=== PATIENT | male | born 1960 | race Caucasian/White ===

== ENCOUNTER 2016-10-05 10:55 | Emergency (ER) | payer BC ==
[2016-10-05 11:34] VITALS: BP 157/87
--- NOTE | 2016-10-05 12:27 | UC ---
Skin Complaint HPI - HPI Summary HPI Summary: Found something on back of L arm in the middle of the night 10/02/16. Pulled it off then realized it was a tick. Has been picking at area, asked friend to help dig in the spot because he is concerned that he has retained tick parts in his skin. Denies fever, redness, or tenderness. - History of Current Complaint Chief Complaint: UCWounds Time Seen by Provider: 10/05/16 12:06 Stated Complaint: TICK BITE Hx Obtained From: Patient Onset/Duration: Sudden Onset Skin Exposure Onset/Duration: Days Ago Onset Severity: Mild Current Severity: Mild Related History: Possible Reaction to: Insect - Allergy/Home Medications Allergies/Adverse Reactions: Allergies Allergy/AdvReac Type Severity Reaction Status Date / Time No Known Allergies Allergy Verified 10/05/16 11:35 Review of Systems Constitutional: Negative Skin: Other - tick bite Eyes: Negative ENT: Negative Respiratory: Negative Cardiovascular: Negative Gastrointestinal: Negative Genitourinary: Negative Motor: Negative Neurovascular: Negative Musculoskeletal: Negative Neurological: Negative Psychological: Negative All Other Systems Reviewed And Are Negative: Yes PMH/Surg Hx/FS Hx/Imm Hx Endocrine History Of: Denies: Diabetes, Thyroid Disease Cardiovascular History Of: Reports: Cardiac Disorders - MA 2013, Hypertension Respiratory History Of: Denies: COPD, Asthma GI/ History Of: Denies: Ulcer - Surgical History Surgical History: Yes Surgery Procedure, Year, and Place: 2 stents 07/2012. APPENDECTOMY - Family History Known Family History: Positive: Hypertension - Social History Occupation: Employed Full-time Alcohol Use: Weekly Substance Use Type: None Smoking Status (MU): Never Smoked Tobacco - Immunization History Most Recent Tetanus Shot: 5 yrs ago Physical Exam Triage Information Reviewed: Yes Appearance: Well-Appearing, No Pain Distress, Obese Vital Signs: Initial Vital Signs Temp 98.4 F 10/05/16 11:30 Pulse 81 10/05/16 11:30 Resp 16 10/05/16 11:30 BP 157/87 10/05/16 11:30 Pulse Ox 98 10/05/16 11:30 Vital Signs Reviewed: Yes Eye Exam: Normal Eyes: Positive: Conjunctiva Clear ENT Exam: Normal ENT: Positive: Normal ENT inspection, Hearing grossly normal, Pharynx normal, TMs normal Dental Exam: Normal Neck exam: Normal Neck: Positive: Supple, Nontender, No Lymphadenopathy Respiratory Exam: Normal Respiratory: Positive: Chest non-tender, Lungs clear, Normal breath sounds, No respiratory distress, No accessory muscle use Cardiovascular Exam: Normal Cardiovascular: Positive: RRR, No Murmur Musculoskeletal Exam: Normal Neurological Exam: Normal Neurological: Positive: Alert Psychological Exam: Normal Skin Exam: Other - round excoriated area approx 1.5cm diameter on L posterior upper arm, mostly scabbed over with darker center. Course/Dx - Diagnoses Provider Diagnoses: tick bite L arm Discharge - Discharge Plan Condition: Stable Disposition: HOME Patient Education Materials: Tick Bite (ED) Referrals: Alec Guido MD [Primary Care Provider] - Additional Instructions: TICK BITE: You have been bitten by a tick. Once the tick is removed, these "bites" usually cause no problems. Tick fever, tick paralysis, [place] Spotted fever, and Lyme disease are uncommon -- but you should mention this tick bite to your doctor if you develop unusual symptoms in the next several weeks. If you develop any of the following, please see your physician promptly: (1) Fever, chills, or generalized malaise associated with a headache. (2) A red round area at the site of the bite (or elsewhere) (3) Joint pain, joint swelling or generalized weakness. (4) Redness, swelling, or drainage at the site of the bite. Check yourself, your children and your pets for ticks whenever you've been in an area where ticks live. To remove a tick, grasp it firmly with some tweezers or a string in a slipknot as close to its head as possible and pull it steadily. Ticks do not have a typical "head" attached to their body. There are mouth parts sticking out which they use to feed. If there are mouth parts left behind in the wound there is NO increased risk of Lyme infection; however, the chances of a bacterial skin infection (cellulitis) are higher. If mouth parts remain after tick removal, the best thing to do is apply warm soaks to the area 3-4 times per day to encourage the skin to expel the foreign material. WHEN A TICK IS NOT ENGORGED AND HAS BEEN ON LESS THAN 24 HOURS - THE RISK FOR LYME IS NEGLIGIBLE. YOU CAN REMOVE THE TICK AND OBSERVE THE AREA ON YOUR OWN. FOLLOW-UP CARE: You should contact your private physician for follow-up care if you develop spreading redness near the site of the bite or on any other areas of the body. If you are unable to get a timely appointment, or if you are worsening, call us or return for re-evaluation.
== END 2016-10-05 12:30 | disposition home or self-care (01) ==
LOC: UCEAST 10:55
DX: S40.862A Insect bite (nonvenomous) of left upper arm, initial encounter (principal); W57.XXXA Bitten or stung by nonvenomous insect and other nonvenomous arthropods, initial encounter; Y93.9 Activity, unspecified; Y92.9 Unspecified place or not applicable; I25.2 Old myocardial infarction; Z95.5 Presence of coronary angioplasty implant and graft; I10 Essential (primary) hypertension
CPT/HCPCS: 99211; G0463

== ENCOUNTER 2018-11-03 09:00 | Inpatient (IN) | payer BC ==
--- NOTE | 2018-10-24 12:39 | HP ---
HISTORY AND PHYSICAL: DATE OF ADMISSION/SURGERY: 11/03/18 DATE OF OFFICE VISIT: 10/21/18 SURGEON: Keyonna Willson MD* (dictated by SHAYLEE Lawton). PROCEDURE: Left total hip arthroplasty. CHIEF COMPLAINT: Left hip pain. HISTORY OF PRESENT ILLNESS: Larry is a 58-year-old gentleman with end-stage osteoarthritis of the left hip. He has failed conservative treatment and elected to proceed with a left total hip arthroplasty. PAST MEDICAL HISTORY: Hypertension, high cholesterol, prior MT, coronary artery disease, GERD, and sleep apnea. PAST SURGICAL HISTORY: Stent placement, hernia repair, appendectomy. CURRENT MEDICATIONS: 1. Aspirin 81 mg daily. 2. Omeprazole 20 mg a day. 3. CPAP nightly. 4. Metoprolol 50 mg a day. 5. Atorvastatin calcium 40 mg a day. 6. Nitrostat as needed. ALLERGIES: No known drug allergies. FAMILY HISTORY: Coronary artery disease. SOCIAL HISTORY: He is a 58-year-old gentleman, lives alone. He does not smoke or use drugs. REVIEW OF SYSTEMS: A complete 14-point review of systems was reviewed with the patient. It was positive for GERD. He denies history of DVT, hepatitis, HIV, or anesthesia problems. PHYSICAL EXAMINATION GENERAL: He is well developed, well nourished, in no acute distress. VITAL SIGNS: He stands 69 inches tall, weighs 260 pounds. Blood pressure is 132/84, heart rate 78. HEENT: Normocephalic, atraumatic. NECK: Supple. No palpable lymph nodes. PULMONARY: The lungs are clear to auscultation bilaterally. CARDIO: Regular rate and rhythm. Strong S1, S2. ABDOMEN: Soft, nontender, nondistended. NEUROLOGICAL: He is alert and oriented x3. MUSCULOSKELETAL: Left lower extremity: The skin is intact. There are no open wounds or abrasions. He walks with an antalgic-type gait favoring his left hip. He has decreased internal and external rotation of the left hip. He has a 2+ dorsalis pedis pulse with intact sensation and he is able to dorsiflex and plantar flex. ASSESSMENT AND PLAN: Mr. Juarez is a 58-year-old gentleman with end-stage osteoarthritis of the left hip. He has failed conservative treatment and elected to proceed with a left total hip arthroplasty. The surgery is scheduled for 11/03/[address] Willson discussed the risks and benefits of the surgery at today's visit and all of his questions were answered. He will follow up with Dr. Willson 2 weeks after the surgery. SHAYLEE LAWTON [id number]/[facility] #: [id number] [place]
[~2018-11-03 09:00] MED LIST: Buffered Lidocaine 1% SYRIN* 1 ML/SYRINGE INTRADERM ONE; Lactated Ringers 1000 ML Bag* 1,000 ML IV SCH; Tranexamic Acid 1,000 MG in NS 0.9% 50 ML* (outpatient use) IV SCH
[2018-11-03] MEDS ORDERED: fentaNYL* 50 MCG/ML 2 ML VIAL (100 MCG VIAL) ONE (09:21)
[2018-11-03] MEDS ORDERED: Midazolam* 1 MG/ML 2 ML VIAL (2 MG) ONE ×2 (09:21→12:42)
[2018-11-03] MEDS ORDERED: Lidocaine 2% PF * 5 ML VIAL ONE (09:21)
[2018-11-03] MEDS ORDERED: Propofol* 10 MG/ML 20 ML BTL ONE (09:21)
[2018-11-03] MEDS ORDERED: ROPIVACAINE 5 MG/ML 30 ML BTL (0.5%) ONE (09:21)
[2018-11-03] MEDS ORDERED: Dexmedetomidine* 200 MCG/2 ML 2 ML VIAL ONE (09:22)
[2018-11-03] MEDS ORDERED: KETAMINE HCL* 50 MG/ML 10 ML VIAL ONE (09:39)
--- OUTSIDE RECORDS SUMMARY | 2018-11-03 09:50 | XMS REPORT | Continuity of Care Document ---
:1960 External Reference #:[id number] Author Name SHAYLEE Cowan Address [address] , [place] [address] Care Team Providers Name Role Phone Alec Guido MD Primary Care Physician Unavailable Payers Date Identification Numbers Payment Provider Subscriber Effective: 2012 Policy Number: [id number] BS Facets Anmol Martinez PayID: [id number] [address] [address] [place] [address] Advance Directives Description No Information Available Problems Active Problems Provider Date Acute myocardial infarction of inferior Ruth Guevara D.O. Onset: 2012 wall Patient post percutaneous transluminal Ruth Guevara D.O. Onset: 2012 coronary angioplasty Coronary arteriosclerosis Milton Warner M.D. Onset: 08/26/2012 Chronic ischemic heart disease Milton Warner M.D. Onset: 08/26/2012 Hyperlipidemia Ruht Guevara D.O. Onset: 11/10/2012 Obstructive sleep apnea syndrome Tray Deal M.D. Onset: 2013 Electrocardiogram abnormal Tray Deal M.D. Onset: 09/22/2013 Localized, primary osteoarthritis of Keyonna Willson M.D. Onset: 10/03/2018 the pelvic region and thigh Family History Date Family Member(s) Observation Comments General Heart Disease Mother Hypercholesterolemia Siblings 2 Social History Type Date Description Comments Sex Unknown Marital Status Single Lives With Alone Occupation Retired ETOH Use Currently consumes alcohol 10 drink/week Tobacco Use Start: Unknown Patient has never smoked Recreational Drug Use Denies Drug Use Smoking Status Reviewed: 10/21/18 Patient has never smoked Exercise Type/Frequency Exercises sporadically Allergies, Adverse Reactions, Alerts Description No Known Drug Allergies Medications Active Medications SIG Qnty Indications Ordering Provider Date Nitrostat one sl q5min up 25tabs Qutaybeh S. 05/17/2014 0.4mg Tablets to 3 doses as Melissa Deal Sub needed Metoprolol Succinate take 1 tablet 90tabs Qutaybeh S. 09/22/2013 ER daily Melissa Deal 50mg Tablets ER 24HR Aspir-Low 1 po qd 30tabs Ruth Guevara, 07/12/2012 81mg Tablets D.O. Atorvastatin Calcium 1 by mouth every 90tabs Qutaybeh S. 07/12/2012 day Melissa Deal 40mg Tablets Omeprazole 1 po qd prn 30caps Unknown 20mg Capsules Cpap nightly Unknown Device History Medications Nitroquick one q 5 min prn 30tabs Qutaybeh S. 09/01/2012 - 0.4mg for cp x 3 if Melissa Deal 05/17/2014 Tablets Sub needed Metoprolol Succinate 1 po qd 90tabs Qutaybeh S. 07/20/2012 - ER Melissa Deal 09/22/2013 25mg Tablets ER 24HR Plavix 1 po qd 30tabs Ruth Guevara, 07/12/2012 - 75mg Tablets D.O. 07/05/2013 Vitamin C SR 1 by mouth every Other Ordering - 1000mg day Provider 11/05/2014 Capsules ER Penicillin VK 1 tablet po q.i.d Unknown - 500mg until finished ( 12/24/2014 abscess tooth) Immunizations CPT Code Status Date Vaccine Lot # [id number] Given 04/13/2016 Influenza Virus 3Yrs & Over Vital Signs Date Vital Result Comment 10/21/2018 3:29pm Height 69.25 inches 5'9.25" Weight 245.00 lb BP Systolic 132 mmHg BP Diastolic 84 mmHg Respiratory Rate 16 /min Pain Level 4 BMI (Body Mass Index) 35.9 kg/m2 10/03/2018 8:27am Height 69.25 inches 5'9.25" Weight 260.00 lb Heart Rate 76 /min BP Systolic 132 mmHg BP Diastolic 90 mmHg Pain Level 9 BMI (Body Mass Index) 38.1 kg/m2 08/08/2018 1:09pm Height 68 inches 5'8" Weight 257.00 lb with shoes Heart Rate 76 /min BP Systolic Sitting 126 mmHg BP Diastolic Sitting 86 mmHg BP Systolic Standing 132 mmHg BP Diastolic Standing 86 mmHg BMI (Body Mass Index) 39.1 kg/m2 Ejection Fraction 55-60% 11/14/14 echo 02/07/2018 2:47pm Height 68 inches 5'8" Weight 247.00 lb with sandals BP Systolic Sitting 110 mmHg Lue lg cuff BP Diastolic Sitting 80 mmHg Lue lg cuff BP Systolic Standing 112 mmHg Lue lg cuff BP Diastolic Standing 72 mmHg Lue lg cuff BMI (Body Mass Index) 37.6 kg/m2 Ejection Fraction 50-55% date 11/14/14 ECHO 12/02/2017 1:10pm Height 68 inches 5'8" Weight 247.00 lb Heart Rate 80 /min BP Systolic Sitting 116 mmHg Rue large cuff BP Diastolic Sitting 90 mmHg Rue large cuff BP Systolic Standing 120 mmHg Rue BP Diastolic Standing 90 mmHg Rue Respiratory Rate 16 /min BMI (Body Mass Index) 37.6 kg/m2 Ejection Fraction 50-55% as of 2014 echo 07/29/2017 4:21pm Height 68 inches 5'8" Weight 257.00 lb without shoes Heart Rate 78 /min BP Systolic Sitting 132 mmHg Rue lg cuff BP Diastolic Sitting 90 mmHg Rue lg cuff BP Systolic Standing 128 mmHg Rue lg cuff BP Diastolic Standing 94 mmHg Rue lg cuff Respiratory Rate 17 /min BMI (Body Mass Index) 39.1 kg/m2 12/24/2016 10:31am Height 68 inches 5'8" Weight 256.00 lb Heart Rate 82 /min BP Systolic Sitting 124 mmHg BP Diastolic Sitting 82 mmHg Respiratory Rate 20 /min O2 % BldC Oximetry 97 % room air BMI (Body Mass Index) 38.9 kg/m2 11/05/2016 3:19pm Height 68 inches 5'8" Weight 250.00 lb with boots Heart Rate 84 /min BP Systolic Sitting 122 mmHg LA lrg cuff BP Diastolic Sitting 78 mmHg LA lrg cuff BMI (Body Mass Index) 38.0 kg/m2 Ejection Fraction 50% - 55% echo 11/14/14 03/25/2016 2:25pm Weight 247.75 lb with shoes Heart Rate 62 /min BP Systolic Sitting 130 mmHg La lg cuff BP Diastolic Sitting 90 mmHg La lg cuff Respiratory Rate 16 /min Ejection Fraction 55% date 11/14/14 stress 08/05/2015 3:48pm Height 68 inches 5'8" Weight 245.00 lb w/shoes Heart Rate 72 /min BP Systolic Sitting 162 mmHg LA reg cuff BP Diastolic Sitting 98 mmHg LA reg cuff BMI (Body Mass Index) 37.2 kg/m2 Ejection Fraction 50-55 echo 11/14/14 12/25/2014 1:02pm Height 68 inches 5'8" Weight 235.00 lb with shoes Heart Rate 64 /min BP Systolic Sitting 120 mmHg Ra lg cuff BP Diastolic Sitting 74 mmHg Ra lg cuff Respiratory Rate 16 /min BMI (Body Mass Index) 35.7 kg/m2 Ejection Fraction 50-55% date 11/14/14 echo 11/06/2014 2:07pm Height 68 inches 5'8" Weight 229.00 lb without shoes Heart Rate 76 /min BP Systolic Sitting 128 mmHg LA lg cuff BP Diastolic Sitting 86 mmHg LA lg cuff Respiratory Rate 12 /min BMI (Body Mass Index) 34.8 kg/m2 Ejection Fraction 50-55% date 09/28/13 05/17/2014 10:49am Height 68 inches 5'8" Weight 222.00 lb Heart Rate 72 /min BP Systolic Sitting 130 mmHg LA, large BP Diastolic Sitting 82 mmHg LA, large BMI (Body Mass Index) 33.8 kg/m2 09/22/2013 9:11am Height 68 inches 5'8" Weight 220.00 lb Heart Rate 72 /min BP Systolic Sitting 122 mmHg BP Diastolic Sitting 70 mmHg BMI (Body Mass Index) 33.4 kg/m2 05/17/2013 2:41pm Height 68 inches 5'8" Weight 216.00 lb Heart Rate 84 /min Regular BP Systolic Sitting 128 mmHg BP Diastolic Sitting 72 mmHg BMI (Body Mass Index) 32.8 kg/m2 11/10/2012 1:35pm Height 68 inches 5'8" Weight 220.25 lb Heart Rate 84 /min Regular BP Systolic Sitting 126 mmHg BP Diastolic Sitting 72 mmHg BMI (Body Mass Index) 33.5 kg/m2 09/01/2012 2:18pm Height 68 inches 5'8" Weight 224.25 lb Heart Rate 72 /min Regular BP Systolic Sitting 122 mmHg BP Diastolic Sitting 80 mmHg BMI (Body Mass Index) 34.1 kg/m2 08/02/2012 3:08pm Height 68 inches 5'8" Weight 232.00 lb Heart Rate 84 /min Regular BP Systolic Sitting 128 mmHg BP Diastolic Sitting 64 mmHg BMI (Body Mass Index) 35.3 kg/m2 07/20/2012 9:57am Height 68 inches 5'8" Weight 232.75 lb Heart Rate 76 /min BP Systolic Sitting 112 mmHg BP Diastolic Sitting 80 mmHg BMI (Body Mass Index) 35.4 kg/m2 Results Test Date Facility Test Result H/L Range Note Inr/Protime 10/24/2018 [facility] Inr 0.94 N 0.82-1.[address] [place] [address] [phone] Laboratory test 10/24/2018 [facility] Partial 27.1 seconds N 26.0-36.[address] [address] PTT [phone] Comp Metabolic 10/24/2018 [facility] Sodium 139 mmol/L N 135- [address] [place] [address] [phone] Potassium 4.4 mmol/L N 3.5-5.0 Chloride 106 mmol/L N 101-111 Co2 Carbon Dioxide 27 mmol/L N 22-32 Anion Gap 6 mmol/L N 2-11 Glucose 110 mg/dL High 70-100 Blood Urea Nitrogen 14 mg/dL N 6-24 Creatinine 0.95 mg/dL N 0.67-1.17 BUN/Creatinine Ratio 14.7 N 8-20 Calcium 9.1 mg/dL N 8.6-10.3 Total Protein 6.6 g/dL N 6.4-8.9 Albumin 4.2 g/dL N 3.2-5.2 Globulin 2.4 g/dL N 2-4 Albumin/Globulin Ratio 1.8 N 1-3 Total Bilirubin 0.60 mg/dL N 0.2-1.0 Alkaline Phosphatase 91 U/L N 34-104 Alt 47 U/L N 7-52 Ast 31 U/L N 13-39 Egfr Non- 82.0 >60 Egfr 99.2 >60 2 CBC Auto Diff 10/24/2018 [facility] White Blood 6.5 10^3/uL N 3.5-10.[address] [place] [address] [phone] Red Blood Count 4.56 10^6/uL N 4.18-5.48 Hemoglobin 15.4 g/dL N 14.0-18.0 Hematocrit 45 % N 36-46 Mean Corpuscular Volume 98 fL High 80-94 Mean Corpuscular Hemoglobin 34 pg High 27-31 Mean Corpuscular HGB Conc 35 g/dL N 31-36 Red Cell Distribution Width 14 % N 10.5-15 Platelet Count 160 10^3/uL N 150-450 Mean Platelet Volume 7.5 fL N 7.4-10.4 Abs Neutrophils 4.0 10^3/uL N 1.5-7.7 Abs Lymphocytes 1.7 10^3/uL N 1.0-4.8 Abs Monocytes 0.6 10^3/uL N 0-0.8 Abs Eosinophils 0.1 10^3/uL N 0-0.6 Abs Basophils 0 10^3/uL N 0-0.2 Abs Nucleated RBC 0 10^3/uL Granulocyte % 61.7 % Lymphocyte % 26.1 % Monocyte % 9.3 % Eosinophil % 2.3 % Basophil % 0.6 % Nucleated Red Blood Cells % 0.1 Type & Screen 10/24/2018 [facility] Patient Blood Type A Positive [address] [place] [address] [phone] Antibody Screen NEGATIVE Urinalysis Profile 10/24/2018 [facility] Urine Color Yellow [address] [place] [address] [phone] Urine Appearance Clear Urine Specific Colbert 1.019 N 1.010-1.030 Urine pH 5.0 N 5-9 Urine Urobilinogen Negative Negative Urine Ketones Negative Negative Urine Protein Negative Negative Urine Leukocytes Negative Negative Urine Blood Negative Negative Urine Nitrite Negative Negative Urine Bilirubin Negative Negative Urine Glucose Negative Negative Urine Culture And 10/24/2018 [facility] Urine Culture SEE RESULT [address] [place] [address] [phone] 1 Standard intensity warfarin therapeutic range: 2.0-3.0 High intensity warfarin therapeutic range: 2.5-3.5 2 Because ethnic data is not always readily available, this report includes an eGFR for both -Americans and non- Americans. The National Kidney Disease Education Program (NKDEP) does not endorse the use of the MDRD equation for patients that are not between the ages of 18 and 70, are , have extremes of body size, muscle mass, or nutritional status, or are non- or non-. According to the National Kidney Foundation, irrespective of diagnosis, the stage of the disease is based on the level of kidney function: Stage Description GFR(mL/min/1.73 m(2)) 1 Kidney damage with normal or decreased GFR 90 2 Kidney damage with mild decrease in GFR 60-89 3 Moderate decrease in GFR 30-59 4 Severe decrease in GFR 15-29 5 Kidney failure <15 (or dialysis) 3 SEE RESULT BELOW Name: ANMOL MARTINEZ : [address]: Keyonna Willson MD Acct: [id number] Unit: [id number] AGE: 58 Location: [facility] Re10/24/18 SEX: M Status: REG REF SPEC: [id number] NIMO: 10/24/[address] [facility] [address]: Keyonna Willson MD REQ: [id number] RECD: 10/24/18-5 STATUS: COMP [facility] DR: Alec Guido MD _ SOURCE: URINE SPDESC: ORDERED: Urine Culture QUERIES: Urine Source: Random Procedure Result Reported Site Urine Culture Final 10/25/18- 1256 ML No Growth (<1,000 CFU/mL) * ML - Main Lab . END OF REPORT DEPARTMENT OF PATHOLOGY, [address] [place] [address] David Marcus M.D. Director [facility] # [id number] Procedures Date Code Description Status 08/08/2018 30197 EKG Tracing & Interpretation Completed 02/07/2018 80602 EKG Tracing & Interpretation Completed 12/02/2017 86564 EKG Tracing & Interpretation Completed 07/29/2017 44687 EKG Tracing & Interpretation Completed 11/05/2016 68118 EKG Tracing & Interpretation Completed 03/25/2016 02971 EKG Tracing & Interpretation Completed 08/05/2015 47572 EKG Tracing & Interpretation Completed 11/21/2014 76737 ECHO Stress Test Incl Perf Contiuous ekg Monitoring W/Phys Completed Superv 11/14/2014 22522 ECHO Transthoracic, Real-Time 2D With Doppler And Color Completed Flow 11/06/2014 20069 EKG Tracing & Interpretation Completed 05/17/2014 62861 EKG Tracing & Interpretation Completed 11/09/2013 93845 ECHO Stress Test Incl Perf Contiuous ekg Monitoring W/Phys Completed Superv 11/09/2013 73152 ECHO Stress Test Incl Perf Contiuous ekg Monitoring W/Phys Completed Superv 09/28/2013 68228 ECHO Transthoracic, Real-Time 2D With Doppler And Color Completed Flow 09/22/2013 35796 EKG Tracing & Interpretation Completed 09/12/2012 69334 Polysomnography Sleep Staging 4+ Parameters W/Cpap Completed 08/26/2012 84237 ECHO Stress Test Incl Perf Contiuous ekg Monitoring W/Phys Completed Superv 08/26/2012 13579 ECHO Stress Test Incl Perf Contiuous ekg Monitoring W/Phys Completed Superv 07/11/2012 74398 Color Flow Doppler/Interp & Reprt Completed 07/11/2012 79026 Pulse Wave/Continuous-Interp.RPT Completed 07/11/2012 05151 ECHO Transthorasic Realtime 2D W Doppler & Color Flow Hosp Completed 07/11/2012 16701 ECHO Transthoracic, Real-Time 2D With Doppler And Color Completed Flow 07/11/2012 89791 EKG, Interpretation Only Completed 07/10/2012 39520 Cath PLMT&NJX L Ventriculog Img S&I Completed 07/10/2012 35666 EKG, Interpretation Only Completed 07/10/2012 63913 Revascularization Acute Total/Subtotal Occlusion Completed 07/10/2012 18576 IV Rx Trancath Therapy(Nitro/Marquis) Completed Encounters Type Date Location Provider Dx Diagnosis Office Visit 10/03/2018 [facility] Keyonna Willson, M25.552 Pain in left hip 8:30a [facility] M16.12 Unilateral primary osteoarthritis, left hip Office Visit 08/08/2018 1:40p [place] [facility] Tray Goldstein I25.10 [facility] Melissa Deal disease of [place] coronary artery w/o ang pctrs E78.49 Other hyperlipidemia G47.33 Obstructive sleep apnea (adult) (pediatric) Z98.61 Coronary angioplasty status E66.9 Obesity, unspecified R94.31 Abnormal electrocardiogram [ECG] [EKG] Office Visit 02/07/2018 3:20p [facility] Deal disease of [place] coronary artery w/o ang pctrs E78.4 Other hyperlipidemia E66.9 Obesity, unspecified G47.33 Obstructive sleep apnea (adult) (pediatric) Office Visit 12/02/2017 1:40p [facility] Tray S. I25.10 [facility] Melissa Deal disease of [place] coronary artery w/o ang pctrs Z98.61 Coronary angioplasty status E78.4 Other hyperlipidemia E66.9 Obesity, unspecified G47.33 Obstructive sleep apnea (adult) (pediatric) Z01.810 Encounter for preprocedural cardiovascular examination K42.9 Umbilical hernia without obstruction or gangrene R94.31 Abnormal electrocardiogram [ECG] [EKG] Office Visit 07/29/2017 4:40p [facility] S. [facility]25.10 [facility] Melissa Deal disease of [place] coronary artery w/o ang pctrs Z98.61 Coronary angioplasty status E78.4 Other hyperlipidemia E66.9 Obesity, unspecified G47.33 Obstructive sleep apnea (adult) (pediatric) Office Visit 12/24/2016 10:15a [facility] G47.33 Obstructive sleep [facility] apnea (adult) [facility] (pediatric) J30.9 Allergic rhinitis, unspecified E66.09 Other obesity due to excess calories Z68.38 Body mass index (BMI) 38.0-38.9, adult Office Visit 11/05/2016 3:40p [facility] Tray S. I25.10 [facility] Melissa Deal disease of [place] coronary artery w/o ang pctrs Z98.61 Coronary angioplasty status E78.4 Other hyperlipidemia G47.33 Obstructive sleep apnea (adult) (pediatric) R94.31 Abnormal electrocardiogram [ECG] [EKG] E66.9 Obesity, unspecified Z68.38 Body mass index (BMI) 38.0-38.9, adult Office Visit 03/25/2016 3:00p [facility] Tray S. I25.10 F[facility] kwadwo Deal M.D. disease of [place] coronary artery w/o [facility] pctrs Z98.61 Coronary angioplasty status E78.4 Other hyperlipidemia G47.33 Obstructive sleep apnea (adult) (pediatric) R94.31 Abnormal electrocardiogram [ECG] [EKG] Office Visit 08/05/2015 4:00p [place] Amber Feliz S. I25.10 [facility] Melissa Deal disease of [place] coronary artery w/o [facility] pctrs Z98.61 Coronary angioplasty status E78.4 Other hyperlipidemia G47.33 Obstructive sleep apnea (adult) (pediatric) R94.31 Abnormal electrocardiogram [ECG] [EKG] E66.9 Obesity, unspecified Office Visit 12/25/2014 Ian Feliz S. 414.01 Coronary 1:40p Cardiology Speedy Deal M.D. Atherosclerosis Su[employer] [place] V45.82 Percutaneous Transluminal Coronary Angioplas Postsurg Status 272.4 Hyperlipidemia Other Unspec 327.23 Obstructive Sleep Apnea Adult & Pediatric Office Visit 11/06/2014 Phan Yoderybjuan S. 414.01 Coronary 2:20p Amber Deal M.D. Atherosclerosis [place] V45.82 Percutaneous Transluminal Coronary Angioplas Postsurg Status 272.4 Hyperlipidemia Other Unspec 327.23 Obstructive Sleep Apnea Adult & Pediatric 786.50 Pain Chest Unspec 786.05 Shortness Of Breath Office Visit 05/17/2014 Phan Yoderybeh S. 414.01 Coronary 11:00a Amber Deal M.D. Atherosclerosis [place] V45.82 Percutaneous Transluminal Coronary Angioplas Postsurg Status 272.4 Hyperlipidemia Other Unspec 327.23 Obstructive Sleep Apnea Adult & Pediatric Office Visit 11/09/2013 Phan Yoderybjuan S. 414.01 Coronary 9:30a Amber Deal M.D. Atherosclerosis [place] 794.31 Electrocardiogram (ECG) (EKG) Abnormal V45.82 Percutaneous Transluminal Coronary Angioplas Postsurg Status 272.4 Hyperlipidemia Other Unspec Office Visit 09/22/2013 Phan Qumaryybeh S. 414.01 Coronary 9:20a Amber Deal M.D. Atherosclerosis [place] V45.82 Percutaneous Transluminal Coronary Angioplas Postsurg Status 272.4 Hyperlipidemia Other Unspec 327.23 Obstructive Sleep Apnea Adult & Pediatric 278.00 Obesity Unspec 794.31 Electrocardiogram (ECG) (EKG) Abnormal Office Visit 05/17/2013 [place] Ruth 414.01 Coronary 2:20p Cardiology Lonnie Guevara Atherosclerosis [place] V45.82 Percutaneous Transluminal Coronary Angioplas Postsurg Status 272.4 Hyperlipidemia Other Unspec 327.23 Obstructive Sleep Apnea Adult & Pediatric Office Visit 11/10/2012 Phan Hugoie 414.01 Coronary 1:40p Cardiology AT Lonnie Guevara Atherosclerosis [facility] [place] V45.82 Percutaneous Transluminal Coronary Angioplas Postsurg Status 272.4 Hyperlipidemia Other Unspec 327.23 Obstructive Sleep Apnea Adult & Pediatric Office Visit 09/16/2012 Conrado Montilla 327.23 Obstructive Sleep 1:51p Disorder [place] Apnea Adult & Pediatric Office Visit 09/06/2012 Conrado Montilla 786.09 Dyspnea & 9:35a Disorder [place] Respiratory Abnormalities Other Office Visit 09/01/2012 Phan Miranda 414.01 Coronary 2:00p Cardiology AT Lonnie Guevara Atherosclerosis [facility] [place] 410.41 Myocardial Infarc Acute Other Infer Wall Initial Episode CR V45.82 Percutaneous Transluminal Coronary Angioplas Postsurg Status 272.4 Hyperlipidemia Other Unspec Office Visit 08/02/2012 Phan Miranda V45.82 Percutaneous 2:40p Cardiology AT Lonnie Guevara Transluminal [facility] Coronary Angioplas Postsurg Status 410.41 Myocardial Infarc Acute Other Infer Wall Initial Episode CR 414.01 Coronary Atherosclerosis [place] 272.4 Hyperlipidemia Other Unspec Office Visit 07/20/2012 9:40a [facility] Ruth 410.41 Myocardial Guevara, D.O. Infarc Acute Other Infer Wall Initial Episode CR 414.01 Coronary Atherosclerosis [place] 272.4 Hyperlipidemia Other Unspec Office Visit 07/12/2012 1:59p [facility] Ruth 786.50 Pain Chest Guevara, D.O. Unspec 410.40 Myocardial Infarc Acute Other Infer Wall Episode CR Unspec 414.01 Coronary Atherosclerosis [place] Office Visit 07/11/2012 1:58p [facility] Ruth 786.50 Pain Chest Guevara, D.O. Unspec 410.40 Myocardial Infarc Acute Other Infer Wall Episode CR Unspec 414.01 Coronary Atherosclerosis [place] Office Visit 07/10/2012 1:39p [facility] Ruth 786.50 Pain Chest Guevara, D.O. Unspec 410.40 Myocardial Infarc Acute Other Infer Wall Episode CR Unspec 414.01 Coronary Atherosclerosis [place] Plan of Treatment Future Appointment(s):11/16/2018 10:15 am - Keyonna Willson M.D. at [facility].11/03/2018 9:30 am - Keyonna Willson M.D. at [facility].10/21/2018 - Keyonna Willson M.D.M25.552 Pain in left hipFollow up:Follow up: 2 weeks after ucybhzpZ54.12 Unilateral primary osteoarthritis, left hip
--- OUTSIDE RECORDS SUMMARY | 2018-11-03 09:50 | XMS REPORT | Continuity of Care Document ---
:1960 External Reference #:[id number] Author Name Shae Larson Care Team Providers Name Role Phone Alec Guido MD Primary Care Physician Unavailable Payers Date Identification Numbers Payment Provider Subscriber Effective: 2012 Policy Number: [id number] [employer] Wilmer Juarez PayID: [id number] [address] [address] [place] [address] Advance Directives Description No Information Available Problems Active Problems Provider Date Acute myocardial infarction of inferior Ruth Guevara D.O. Onset: 2012 wall Patient post percutaneous transluminal Ruth Guevara D.O. Onset: 2012 coronary angioplasty Coronary arteriosclerosis Milton Warner M.D. Onset: 08/26/2012 Chronic ischemic heart disease Milton Warner M.D. Onset: 08/26/2012 Hyperlipidemia Ruth Guevara D.O. Onset: 11/10/2012 Obstructive sleep apnea [...] CPT Code Status Date Vaccine Lot # [id number] Given 04/13/2016 Influenza Virus 3Yrs & Over [...] BMI (Body Mass Index) 35.4 kg/m2 Results Description No Information Available Procedures Date Code Description Status 08/08/2018 45327 EKG Tracing & Interpretation Completed 02/07/2018 22442 EKG Tracing & Interpretation Completed 12/02/2017 40174 EKG Tracing & Interpretation Completed 07/29/2017 95380 EKG Tracing & Interpretation Completed 11/05/2016 64474 EKG Tracing & Interpretation Completed 03/25/2016 88055 EKG Tracing & Interpretation Completed 08/05/2015 49626 EKG Tracing & Interpretation Completed 11/21/2014 21647 ECHO Stress Test Incl Perf Contiuous ekg Monitoring W/Phys Completed Superv 11/14/2014 47684 ECHO Transthoracic, Real-Time 2D With Doppler And Color Completed Flow 11/06/2014 81492 EKG Tracing & Interpretation Completed 05/17/2014 88419 EKG Tracing & Interpretation Completed 11/09/2013 62203 ECHO Stress Test Incl Perf Contiuous ekg Monitoring W/Phys Completed Superv 11/09/2013 91233 ECHO Stress Test Incl Perf Contiuous ekg Monitoring W/Phys Completed Superv 09/28/2013 45030 ECHO Transthoracic, Real-Time 2D With Doppler And Color Completed Flow 09/22/2013 02138 EKG Tracing & Interpretation Completed 09/12/2012 74941 Polysomnography Sleep Staging 4+ Parameters W/Cpap Completed 08/26/2012 29642 ECHO Stress Test Incl Perf Contiuous ekg Monitoring W/Phys Completed Superv 08/26/2012 24357 ECHO Stress Test Incl Perf Contiuous ekg Monitoring W/Phys Completed Superv 07/11/2012 57485 Color Flow Doppler/Interp & Reprt Completed 07/11/2012 21539 Pulse Wave/Continuous-Interp.RPT Completed 07/11/2012 96296 ECHO Transthorasic Realtime 2D W Doppler & Color Flow Hosp Completed 07/11/2012 65929 ECHO Transthoracic, Real-Time 2D With Doppler And Color Completed Flow 07/11/2012 24371 EKG, Interpretation Only Completed 07/10/2012 18779 Cath PLMT&NJX L Ventriculog Img S&I Completed 07/10/2012 01726 EKG, Interpretation Only Completed 07/10/2012 83268 Revascularization Acute Total/Subtotal Occlusion Completed 07/10/2012 26999 IV Rx Trancath Therapy(Nitro/Marquis) Completed Encounters Type Date Location Provider Dx Diagnosis Office Visit 10/03/2018 [facility] Keyonna Willson, M25.552 Pain in left hip 8:30a [facility] M16.12 Unilateral primary osteoarthritis, left hip Office Visit 08/08/2018 1:40p [facility] Tray S. I25.10 Jianpadahiana Deal M.D. disease of iroquois coronary artery w/o ang pctrs E78.49 Other hyperlipidemia G47.33 Obstructive sleep apnea (adult) (pediatric) Z98.61 Coronary angioplasty status E66.9 Obesity, unspecified R94.31 Abnormal electrocardiogram [ECG] [EKG] Office Visit 02/07/2018 3:20p [facility] Qumaryybjuan S. I25.10 [facility] heart Heather Deal M.D. disease of iroquois coronary artery w/o ang pctrs E78.4 Other hyperlipidemia E66.9 Obesity, unspecified G47.33 Obstructive sleep apnea (adult) (pediatric) Office Visit 12/02/2017 1:40p [facility] Tray S. I25.10 [facility] Terry Deal M.D. disease of iroquois coronary artery w/o ang pctrs Z98.61 Coronary angioplasty status E78.4 Other hyperlipidemia E66.9 Obesity, unspecified G47.33 Obstructive sleep apnea (adult) (pediatric) Z01.810 Encounter for preprocedural cardiovascular examination K42.9 Umbilical hernia without obstruction or gangrene R94.31 Abnormal electrocardiogram [ECG] [EKG] Office Visit 07/29/2017 4:40p [facility] RisparmioSuperchloe S. I25.10 [facility] heart Of Terry Deal M.D. disease of iroquois coronary artery w/o ang pctrs Z98.61 Coronary angioplasty status E78.4 Other hyperlipidemia E66.9 Obesity, unspecified G47.33 Obstructive sleep apnea (adult) (pediatric) Office Visit 12/24/2016 10:15a [facility] G47.33 Obstructive sleep [facility] Wojciech apnea (adult) Jewel Stripper (pediatric) J30.9 Allergic rhinitis, unspecified E66.09 Other obesity due to excess calories Z68.38 Body mass index (BMI) 38.0-38.9, adult Office Visit 11/05/2016 3:40p [facility] Qutaybeh S. I25.10 Rafael Deal M.D. disease of iroquois coronary artery w/o ang pctrs Z98.61 Coronary angioplasty status E78.4 Other hyperlipidemia G47.33 Obstructive sleep apnea (adult) (pediatric) R94.31 Abnormal electrocardiogram [ECG] [EKG] E66.9 Obesity, unspecified Z68.38 Body mass index (BMI) 38.0-38.9, adult Office Visit 03/25/2016 3:00p [facility] Qutaybeh S. I25.10 Rafael Deal M.D. disease of iroquois coronary artery w/o ang pctrs Z98.61 Coronary angioplasty status E78.4 Other hyperlipidemia G47.33 Obstructive sleep apnea (adult) (pediatric) R94.31 Abnormal electrocardiogram [ECG] [EKG] Office Visit 08/05/2015 4:00p [facility] Tray S. I25.10 Rafael Deal M.D. disease of iroquois coronary artery w/o ang pctrs Z98.61 Coronary angioplasty status E78.4 Other hyperlipidemia G47.33 Obstructive sleep apnea (adult) (pediatric) R94.31 Abnormal electrocardiogram [ECG] [EKG] E66.9 Obesity, unspecified Office Visit 12/25/2014 Ian Feliz S. 414.01 Coronary 1:40p Mago M.D. Atherosclerosis Jewel [facility] [place] V45.82 Percutaneous Transluminal Coronary Angioplas Postsurg Status 272.4 Hyperlipidemia Other Unspec 327.23 Obstructive Sleep Apnea Adult & Pediatric Office Visit 11/06/2014 Phan Feliz S. 414.01 Coronary 2:20p Cardiology Maghaydah, M.D. Atherosclerosis [place] V45.82 Percutaneous Transluminal Coronary Angioplas Postsurg Status 272.4 Hyperlipidemia Other Unspec 327.23 Obstructive Sleep Apnea Adult & Pediatric 786.50 Pain Chest Unspec 786.05 Shortness Of Breath Office Visit 05/17/2014 Phan Jainchloe S. 414.01 Coronary 11:00a Cardiology Melissa Deal Atherosclerosis [place] V45.82 Percutaneous Transluminal Coronary Angioplas Postsurg Status 272.4 Hyperlipidemia Other Unspec 327.23 Obstructive Sleep Apnea Adult & Pediatric Office Visit 11/09/2013 Phan Jainchloe S. 414.01 Coronary 9:30a Cardiology Melissa Deal Atherosclerosis [place] 794.31 Electrocardiogram (ECG) (EKG) Abnormal V45.82 Percutaneous Transluminal Coronary Angioplas Postsurg Status 272.4 Hyperlipidemia Other Unspec Office Visit 09/22/2013 Diana Tray S. 414.01 Coronary 9:20a Cardiology Melissa Deal Atherosclerosis [place] V45.82 Percutaneous Transluminal Coronary Angioplas Postsurg Status 272.4 Hyperlipidemia Other Unspec 327.23 Obstructive Sleep Apnea Adult & Pediatric 278.00 Obesity Unspec 794.31 Electrocardiogram (ECG) (EKG) Abnormal Office Visit 05/17/2013 Phan Miranda 414.01 Coronary 2:20p Cardiology Lonnie Guevara Atherosclerosis [place] V45.82 Percutaneous Transluminal Coronary Angioplas Postsurg Status 272.4 Hyperlipidemia Other Unspec 327.23 Obstructive Sleep Apnea Adult & Pediatric Office Visit 11/10/2012 Phan Miranda 414.01 Coronary 1:40p Cardiology AT Ronak Guevara. Atherosclerosis [facility] [place] V45.82 Percutaneous Transluminal Coronary Angioplas Postsurg Status 272.4 Hyperlipidemia Other Unspec 327.23 Obstructive Sleep Apnea Adult & Pediatric Office Visit 09/16/2012 Conrado Montilla 327.23 Obstructive Sleep 1:51p Disorder Bijan Camp M.D. Apnea Adult & Pediatric Office Visit 09/06/2012 Conrado Montilla 786.09 Dyspnea & 9:35a Disorder Bijan Camp M.D. Respiratory Abnormalities Other Office Visit 09/01/2012 Phan Miranda 414.01 Coronary 2:00p Cardiology AT Alicia GuevaraO. Atherosclerosis [facility] [place] 410.41 Myocardial Infarc Acute Other Infer Wall Initial Episode CR V45.82 Percutaneous Transluminal Coronary Angioplas Postsurg Status 272.4 Hyperlipidemia Other Unspec Office Visit 08/02/2012 Phan Miranda V45.82 Percutaneous 2:40p Cardiology AT Ismael D.OAbena Transluminal [facility] Coronary Angioplas Postsurg Status 410.41 Myocardial Infarc Acute Other Infer Wall Initial Episode CR 414.01 Coronary Atherosclerosis [place] 272.4 Hyperlipidemia Other Unspec Office Visit 07/20/2012 9:40a [facility] Ruth 410.41 Myocardial Guevraa, D.O. Infarc Acute Other Infer Wall Initial Episode CR 414.01 Coronary Atherosclerosis [place] 272.4 Hyperlipidemia Other Unspec Office Visit 07/12/2012 1:59p [facility] Ruth 786.50 Pain Chest Guevara, D.O. Unspec 410.40 Myocardial Infarc Acute Other Infer Wall Episode CR Unspec 414.01 Coronary Atherosclerosis [place] Office Visit 07/11/2012 1:58p [facility] Ruth 786.50 Pain Chest Guevara, D.O. Unspec 410.40 Myocardial Infarc Acute Other Infer Wall Episode CR Unspec 414.01 Coronary Atherosclerosis [place] Office Visit 07/10/2012 1:39p [facility] Ruth 786.50 Pain Chest Guevara, D.O. Unspec 410.40 Myocardial Infarc Acute Other Infer Wall Episode CR Unspec 414.01 Coronary Atherosclerosis [place] Plan of Treatment Future Appointment(s):11/16/2018 10:15 am - Keyonna Willson M.D[facility] at [facility]11/03/2018 9:30 am - Keyonna Willson M.D. at [facility]10/21/2018 - Keyonna Willson M.D.M25.552 Pain in left hipFollow up:Follow up: 2 weeks after [id number] Unilateral primary osteoarthritis, left hip
[2018-11-03] MEDS ORDERED: ceFAZolin 2 GM PREMIX in ORs 2 GM/50 ML BAG IVPB ONE (10:30)
[2018-11-03] MEDS ORDERED: Succinylcholine* 20 MG/ML 10 ML VIAL ONE (12:50)
[2018-11-03] MEDS ORDERED: Dexamethasone IV* 4 MG/ML 1 ML (4 MG) ONE (12:55)
[2018-11-03] MEDS ORDERED: Rocuronium* 10 MG/ML VIAL ONE ×2 (12:57→13:37)
[2018-11-03] MEDS ORDERED: EPHEDrine (Pressors)* 50 MG/ML VIAL ONE (13:28)
[2018-11-03] MEDS ORDERED: hydrALAZINE IV* 20 MG/ML VIAL ONE (13:40)
[2018-11-03] MEDS ORDERED: DiMENhydriNATE IV* 50 MG/ML VIAL IV PUSH PRN (13:44)
[2018-11-03] MEDS ORDERED: Naloxone* 0.4 MG/ML 1 ML VIAL IV PRN (13:44)
[2018-11-03] MEDS ORDERED: oxyCODONE TAB* 5 MG TAB PO PRN (13:44)
[2018-11-03] MEDS ORDERED: HYDROmorphone INJ1* 1 MG/ML SYRINGE ONE ×3 (13:56→16:25)
[2018-11-03] MEDS ORDERED: Ketorolac INJ* 30 MG/ML 1 ML VIAL ONE (15:14)
[2018-11-03] MEDS ORDERED: Ondansetron INJ* 2 MG/ML VIAL ONE (15:14)
[2018-11-03] MEDS ORDERED: Acetaminophen IV 1GM/100ML * 100 ML ONE (15:14)
[2018-11-03] MEDS ORDERED: Metoclopramide IV* 5 MG/ML 2 ML VIAL ONE (15:14)
[2018-11-03] MEDS ORDERED: Neostigmine Methylsulfate* 1 MG/ML 10 ML VIAL (1 mg/ml) ONE (15:17)
[2018-11-03] MEDS ORDERED: Glycopyrrolate IV* 0.2 MG/ML 1 ML VIAL ONE (15:17)
[2018-11-03] MEDS ORDERED: diPHENhydraMINE PO* 25 MG PO PRN (15:47)
[2018-11-03] MEDS ORDERED: Cyclobenzaprine TAB* 10 MG PO PRN (15:47)
[2018-11-03] MEDS ORDERED: Ondansetron INJ* 2 MG/ML VIAL IV PRN (15:47)
[2018-11-03] MEDS ORDERED: traMADol TAB* 50 MG PO PRN (15:47)
[2018-11-03] MEDS ORDERED: Magnesium Hydroxide LIQ* 30 ML UDC PO PRN (15:47)
[2018-11-03] MEDS ORDERED: Morphine 4 MG/ML VIAL (1 ml) 4 MG/ML VIAL IV PRN (15:47)
[2018-11-03] MEDS ORDERED: diPHENhydraMINE IV* 50 MG/ML 1 ml VIAL (BENADRYL) IV PRN (15:47)
[2018-11-03] MEDS ORDERED: Bisacodyl SUPP* 10 MG SUPP PR PRN (15:47)
[2018-11-03] MEDS ORDERED: Polyethylene Glycol 3350* 17 GM PACKET PO PRN (15:47)
[2018-11-03] MEDS ORDERED: Nitroglycerin TAB 0.4 MG* 0.4 MG TAB SL PRN (15:54)
[2018-11-03] MEDS ORDERED: oxyCODONE/Acetamin 5/325 MG* TAB PO PRN (15:58)
[2018-11-03] MEDS: HYDROmorphone INJ1* 1 MG/ML SYRINGE IV PRN ×4 (15:59→17:11)
[2018-11-03] MEDS ORDERED: Gabapentin CAP(*) 300 MG ONE (16:26)
[2018-11-03] MEDS ORDERED: oxyCODONE/Acetamin 5/325 MG* TAB ONE (16:41)
[2018-11-03] MEDS: oxyCODONE/Acetamin 5/325 MG* TAB PO PRN (16:42)
[2018-11-03] MEDS ORDERED: Cyclobenzaprine TAB* 10 MG PO ONE (17:00)
--- NOTE | 2018-11-03 17:12 | OP ---
Operative Report - Blank - Operative Report Date of Operation: 11/03/18 Note: ANMOL MARTINEZ 1960 Date Of Surgery: 11/03/18 Keyonna Willson MD Corrugator Helper: Kerline JUNE did help throughout the procedure with preparation of the hip, wound retraction, manipulation of the hip, and wound closure. Anesthesiologist: Dr. Cannon Anesthesia Type: General Preoperative Diagnosis: Left severe degenerative osteoarthritis of the hip Postoperative Diagnosis: As above Procedure Performed: Left Total Hip Arthroplasty Complications: None Specimen: Femoral head and acetabular reamings sent to pathology. Hardware used: This is uncemented Cassie total hip arthroplasty hardware for the femur a size 5 accolade II with 132 neck femoral component, for the acetabulum a size 52E trident II tritanium cluster hole shell, for the insert a size 36E poly trident x3 insert, and for the femoral head a size 36 + 0 ceramic biolox V40 femoral head. Brief history/Indication: ANMOL MARTINEZ was known in clinic and had a history of severe left hip pain. He failed conservative treatment with anti- inflammatories, pain pills, intra-articular injections and physical therapy. He elected to undergo left total hip arthroplasty due to continued pain and decreased quality of life. Radiographs showed severe end stage osteoarthritis of the hip with bone on bone contact. Informed consent was obtained from the patient. He understood the risks of surgery included but were not limited to: bleeding, infection, damage to nearby structures, intraoperative fracture, nerve palsy, failure of the hardware, early loosening, stiffness or loss of motion, dislocation, leg length discrepancy, anesthesia complications, stroke, heart attack, blood clot and . He wished to proceed. Intra-Operative findings: Intraoperatively the patient was noted to have severe loss of cartilage of the acetabulum and femoral head. Description of the Procedure: ANMOL MARTINEZ was identified in the preanesthesia unit. His left hip was marked as the correct operative side. Informed consent was signed and placed in the chart. The patient was taken to the operating room and placed under anesthesia without complication. A phillips catheter was placed. The patient was placed on the peg board with all bony prominences well padded. The left lower extremity was prepped and draped in the usual sterile fashion. Preoperative time-out was made to correctly identify the patient, side and site. Appropriate intraoperative antibiotics were given within one hour of incision. A standard posterior incision was made and carried sharply down to the lateral fascia. A new 10 blade was used to make an incision in the fascia in line with the skin incision. A charnley retractor was placed. The piriformis and conjoined tendons were identified and elevated off the posterolateral femur using electrocautery. These were tagged with number 5 Ethibond. Next electrocautery was used to make a posterolateral capsular flap and this was tagged with number 5 Ethibonds. The hip was carefully dislocated. Lesser trochanter to the center of the femoral head was measured at 55 mm. The oscillating saw was used to make the femoral neck cut. The femoral head was carefully removed. The femur was retracted anteriorly and the acetabular retractors were placed. Long-handled knife was used to sharply remove any remaining labrum from the acetabular rim. The acetabulum was sequentially reamed up to a size 51. A bleeding subchondral bone bed was obtained. A trial cup was placed and had excellent fit and stability. A 52 E trident II tritanium cup was placed and had excellent stability with appropriate anteversion and abduction angle. A size 36 E poly trident x 3 liner was impacted into the acetabular shell. The liner was checked for stability and was stable. Next attention was turned to preparation of the femoral canal. A canal finder was used to enter the proximal femur. The femoral canal was sequentially broached up to a size 5 femoral broach trial. A trial neck and 36 + 0 trial femoral head was chosen. Lesser trochanter to center of the femoral head measurement was satisfactory. The hip was reduced and taken through a range of motion. The hip was stable in all positions with good soft tissue tension and appropriate leg lengths. The hip was dislocated and all trials were removed. The final implant chosen was a 5 accolade II with 132 neck. This stem was impacted into the femoral canal without difficulty. The stem was stable with appropriate anteversion. The femoral head chosen was a 36 + 0 biolox ceramic head. The head was impacted onto the femoral neck without difficulty. The final lesser trochanter to center of the femoral head measurement was satisfactory. The hip was reduced and taken through a range of motion. The hip was stable in all positions with good soft tissue tension and appropriate leg lengths. The hip was copiously irrigated with sterile saline. The previously tagged capsule and tendons were repaired to the posterolateral femur through two trochanteric drill holes. The lateral fascia layer was closed using number 1 vicryls. The rest of the incision was closed in a layered fashion using 0 and 2-0 vicryls. The skin was closed using 3-0 monocryl suture and Dermabond. Sterile adaptic, 4x4s and paper tape was used to cover the incision. The patients anesthesia was reversed without difficulty. He was taken to the PACU in stable condition. Intended weight-bearing will be as tolerated with posterior hip precautions.
--- NOTE | 2018-11-03 17:23 | PN ---
Progress Note - Progress Note Date of Service: 11/03/18 Note: Patient seen in PACU POD 0 s/p LTH arthroplasty. Feeling well, pain managed. + DF left foot. Full sensation left ankle.
[2018-11-03] MEDS: Lactated Ringers 1000 ML Bag* 1,000 ML IV SCH (17:57)
[2018-11-03] MEDS: Docusate CAP* 100 MG PO SCH (19:28)
[2018-11-03] MEDS: Magnesium Hydroxide LIQ* 30 ML UDC PO SCH (19:28)
[2018-11-03] MEDS: Amoxicillin PO (*) 500 MG CAP PO SCH (20:49)
[2018-11-03] MEDS: ceFAZolin 1 GM ADVAN(*) 1 GM in NS 0.9% 50 ML* 50 ML IVPB SCH (20:50)
[2018-11-03] MEDS: Acetaminophen TAB* 325 MG PO SCH (20:52)
--- NOTE | 2018-11-03 21:51 | CONS ---
CC: Dr. Keyonna Willson.* CONSULTATION REPORT: DATE OF CONSULT: 11/03/18 CONSULTING PROVIDER: Dr. Keyonna Willson. MY ATTENDING WHILE IN THE HOSPITAL: Dr. Arlen Morrow. REASON FOR CONSULT: Co-management of comorbid medical conditions. HISTORY OF PRESENT ILLNESS: Mr. Juarez is a 58-year-old male with past medical history significant for hypertension, history of AL, sleep apnea and cholesterol , who is status post left total hip arthroplasty after failing outpatient conservative therapy. During postoperatively, the patient says that the pain in his hip is approximately 9.7/10, localized at hip, does not radiate. The patient has full sensation back in his leg after his spinal nerve block. The patient denies chest pain, dizziness, palpitations, nausea, vomiting, abdominal pain. The patient preoperatively had no recent illnesses, no recent changes in medications. The patient has not taken his aspirin in 1 week. The patient did take his metoprolol daily. The patient's main complaint was CPAP. The patient denies any sick contacts, any abdominal pain, diarrhea, and pain with urination , any passing out. No decrease in exercise tolerance due to dyspnea and no nocturia, orthopnea or lower extremity edema. The patient denies any dizziness. PAST MEDICAL HISTORY: Hypertension; high cholesterol; prior AL, status post PCI ; coronary artery disease; GERD; sleep apnea. PAST SURGICAL HISTORY: PCI, hernia repair, appendectomy, status post left total hip arthroplasty. MEDICATIONS: 1. Aspirin 81 mg p.o. daily. 2. Omeprazole 20 mg p.o. daily. 3. Metoprolol succinate 50 mg p.o. daily. 4. Lipitor 40 mg p.o. daily. 5. Nitroglycerin 0.4 mg sublingually as needed. ALLERGIES: No known drug allergies. FAMILY HISTORY: Both the patient's parents had coronary artery disease. The patient has a sister with hypertension and several other siblings who are healthy. SOCIAL HISTORY: The patient quit smoking in the 80s after smoking for just a few years. The patient has not used illicit drugs. The patient drinks approximately 2 drinks of alcohol at night. 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 The patient's surrogate decision maker will be his father, Lex Juarez. The patient is not , does not have children. REVIEW OF SYSTEMS: A 14-point review of systems was reviewed and is negative except as above in the HPI. PHYSICAL EXAM: General: The patient is a 58-year-old male who appears stated age and sitting comfortably in bed, in no acute distress. Vital Signs: Temperature 97.0, pulse rate 82, respiratory rate 16, oxygen saturation 94% on room air, blood pressure 144/64. HEENT: Head normocephalic, atraumatic. Sclerae anicteric. No conjunctival injection. Nasal mucosa moist. Oral mucosa moist. No oropharyngeal erythema, discharge, or exudate. Neck: Supple , nontender. No lymphadenopathy. No carotid bruits auscultated. No JVD. Cardiac: Regular rate and rhythm. No clicks, murmurs, gallops, or rubs. Pulses are 2+ in the bilateral dorsalis pedis, posterior tibialis, and radial areas. Respiratory: Clear to auscultation bilaterally. No wheezes, rales, or rhonchi. Good air exchange bilaterally. Abdomen: Soft, nontender, nondistended. Bowel sounds present and normoactive in all 4 quadrants. No hepatosplenomegaly. No abdominal bruits auscultated. No hepatojugular reflux. Genitourinary: No suprapubic or CVA tenderness. Guo in place draining clear yellow urine. LABORATORY DATA: Preoperatively: White blood cell count 6.5, hemoglobin 15.4, platelet count 160. INR 0.94, PTT 27.1. Chemistry: Sodium 139, potassium 4.4 , chloride 106, carbon dioxide 27, anion gap 6, BUN 14, creatinine 0.95, glucose 110, calcium 9.1. Bilirubin 0.6, AST 31, ALT 47, alkaline phosphatase 91. Protein 6.6, albumin 4.2, globulin 2.4. Urine: Unremarkable. ASSESSMENT AND PLAN: Impression: Mr. Juarez is a 58-year-old male with past medical history significant for myocardial infarction, status post percutaneous coronary intervention, hypertension, high cholesterol and coronary artery disease as well as sleep apnea, who is status post left total hip arthroplasty and has significant pain, was otherwise doing well. 1. Postoperative state. Management per Orthopedics. The patient should have bowel regimen, PT, OT. The patient's hemoglobin and hematocrit checked. The patient should have fluids until able to tolerate adequate intake by mouth. The patient will have aspirin resumed the day after tomorrow. Pain control with opioids and muscle relaxants. 2. Coronary artery disease, status post percutaneous coronary intervention. The patient currently has no signs of acute coronary syndrome. The patient is chest pain free. Continue patient's aspirin when available. 3. Hyperlipidemia. Continue the patient's statin. 4. Hypertension. Continue the patient's Toprol perioperatively. Monitor for hypotension and orthostatic hypotension. 5. Obstructive sleep apnea. Continue the patient's CPAP. 6. FEN: The patient will have regular unrestricted diet and fluids until able to tolerate adequate intake by mouth. 7. Disposition: Per Orthopedics. 8. Code status: The patient would like to be a full code. 9. DVT prophylaxis. With apixaban. TIME SPENT: Approximately 45 minutes was spent on this consultation, 30 of which was spent [id number] with the patient obtaining history and physical and discussing the treatment plan. This plan was discussed with my attending, Dr. Arlen Morrow, and she is in agreement. SHAYLEE RAINEY [id number]/CPS #: [id number] MTDD
[2018-11-03] MEDS: oxyCODONE TAB* 5 MG TAB PO PRN (22:52)
[2018-11-04] MEDS: oxyCODONE/Acetamin 5/325 MG* TAB PO PRN ×2 (01:03→08:06)
[2018-11-04] MEDS: Acetaminophen TAB* 325 MG PO SCH ×2 (01:07→07:24)
[2018-11-04] MEDS: Lactated Ringers 1000 ML Bag* 1,000 ML IV SCH (04:09)
[2018-11-04] MEDS: oxyCODONE TAB* 5 MG TAB PO PRN ×2 (04:34→13:27)
[2018-11-04] MEDS: ceFAZolin 1 GM ADVAN(*) 1 GM in NS 0.9% 50 ML* 50 ML IVPB SCH ×2 (04:36→13:28)
[2018-11-04 05:40] LABS: Hematocrit 38 % (42-52); Hemoglobin 12.8 g/dL (14.0-18.0); Mean Platelet Volume 7.4 fL (7.4-10.4); Platelet Count 197 10^3/uL (150-450)
[2018-11-04 06:02] LABS: BUN/Creatinine Ratio 13.6 (8-20); Calcium 8.7 mg/dL (8.6-10.3); EGFR African American 72.3 (>60); EGFR Non-African American 59.7 (>60); Potassium 4.5 mmol/L (3.5-5.0)
[2018-11-04] MEDS: Amoxicillin PO (*) 500 MG CAP PO SCH ×2 (08:06→13:27)
[2018-11-04] MEDS: Magnesium Hydroxide LIQ* 30 ML UDC PO SCH ×2 (08:06→08:10)
[2018-11-04] MEDS: Docusate CAP* 100 MG PO SCH (08:06)
[2018-11-04] MEDS ORDERED: Pantoprazole TAB * 40 MG TAB PO SCH (09:00)
[2018-11-04] MEDS ORDERED: Metoprolol Succinate XL TAB* 50 MG PO SCH (09:00)
[2018-11-04] MEDS ORDERED: Apixaban* 2.5 MG TAB PO SCH (09:00)
[2018-11-04] MEDS ORDERED: Atorvastatin* 40 MG TAB PO SCH (09:00)
--- NOTE | 2018-11-04 11:14 | DS ---
Orthopedic Discharge Summary - Discharge Summary Date of Admission:11/03/18 Date of Discharge: 11/04/18 Date of Surgery: 11/03/18 Attending Orthopedic Provider: Dr. Willson Pre-operative Diagnosis: DJD left hip Operative Procedure: Left total hip arthroplasty Condition of Patient: stable History: ANMOL MARTINEZ is a 58 year old M with years of increasingly severe left hip pain. Patient has failed conservative management and has elected to undergo a left total hip replacement Hospital Course: ANMOL was admitted to [facility] on 11/03/18. Patient underwent a left total without complication followed by a brief recovery in PACU and transfer to the Short Stay Surgical Unit in stable condition. Our hospitalist service, physical therapy and occupational therapy also participated in this patients care. Post-op day 1: patient was alert and in no acute distress. Dressing was clean, dry and intact. Operative extremity dorsiflexion and plantarflexion intact, sensation intact to light touch distally , DP2+. Dressing was changed, incision was clean, dry and intact. Patient was deemed to be medically and orthopedically stable for discharge home. Physical therapy goals were met. Home Medications Medication Instructions Recorded Confirmed Type Atorvastatin* [Lipitor*] 40 mg PO QAM 09/06/12 10/24/18 History Omeprazole CAP (NF) [Prilosec CAP* 20 mg PO QAM 09/06/12 10/24/18 History 20 MG] Metoprolol Succinate 50 mg PO QAM 10/24/18 10/24/18 History Nitroglycerin TAB 0.4 MG* 0.4 mg SL Q5M PRN 10/24/18 10/24/18 History Amoxicillin PO (*) [Amoxicillin 500 mg PO TID 11/02/18 11/02/18 History 500 MG CAP*] Apixaban* [Eliquis*] 2.5 mg PO BID #60 tab 11/04/18 Rx oxyCODONE/Acetamin 5/325 MG* 1 - 2 tab PO Q3H PRN #70 tab MDD 10 11/04/18 Rx [Percocet 5/325 TAB*] Discharge home Eliquis 2.5 BID for DVT prophylaxis WBAT LLE Posterior hip precautions F/u 10-[address] Willson
[2018-11-04 11:42] VITALS: BP 112/58
--- NOTE | 2018-11-04 17:14 | PN ---
Subjective Date of Service: 11/04/18 Interval History: HOSPITALIST PROGRESS NOTE Patient seen and examined at bedside earlier today. Care reviewed and d/w Daphney Avalos RN. He feels well today, pain is well controlled. Family History: Unchanged from Admission Social History: Unchanged from Admission Past Medical History: Unchanged from Admission Objective Vital Signs - 8 hr 11/04/18 11/04/18 11/04/18 11:03 11:22 13:27 Temperature 98.0 F Pulse Rate 83 Respiratory 16 20 18 Rate Blood Pressure 112/58 (mmHg) O2 Sat by Pulse 96 Oximetry Oxygen Devices in Use Now: None Appearance: Obese middle aged gentleman sitting up in bed in NAD. Eyes: No Scleral Icterus Ears/Nose/Mouth/Throat: Mucous Membranes Moist Neck: Trachea Midline Respiratory: Symmetrical Chest Expansion and Respiratory Effort, Clear to Auscultation Cardiovascular: RRR - Normal S1 and S2 Neurological: Alert and Oriented x 3, NL Muscle Strength and Tone Result Diagrams: 11/04/18 05:01 11/04/18 05:01 Assess/Plan/Problems-Billing Assessment: Mr Juarez is a 58yo m with PMH of HTN, HLD, CAD, obesity with BMI 38.5, GERD, JUDE , admitted for elective left total hip arthroplasty. - Patient Problems (1) CAD (coronary artery disease) Comment: - Stable. - Resume Aspirin when ok with Ortho. - Continue Metoprolol and Atorvastatin. (2) HTN (hypertension) Comment: - Resume Metoprolol. (3) DVT prophylaxis Comment: - Eliquis as per Ortho. Status and Disposition: Hospitalist service will sign out.
[2018-11-05] MEDS ORDERED: Aspirin EC TAB* 81 MG TAB.EC PO SCH (09:00)
== END 2018-11-04 15:45 | disposition home or self-care (01) | DRG 301 ==
LOC: AA 09:46 → SSU 15:47
PROVIDERS: ADMIT Orthopaedic Surgery Adult Reconstructive Orthopaedic Surgery; ATTEND Orthopaedic Surgery Adult Reconstructive Orthopaedic Surgery
PROC: 0SRB04A Replacement of Left Hip Joint with Ceramic on Polyethylene Synthetic Substitute, Uncemented, Open Approach (ICD-10-PCS; principal; 2018-11-03 13:15)
DX: M16.12 Unilateral primary osteoarthritis, left hip (principal); I10 Essential (primary) hypertension; E78.00 Pure hypercholesterolemia, unspecified; I25.10 Atherosclerotic heart disease of native coronary artery without angina pectoris; G47.33 Obstructive sleep apnea (adult) (pediatric); K21.9 Gastro-esophageal reflux disease without esophagitis; E66.9 Obesity, unspecified; E78.2 Mixed hyperlipidemia; Z95.5 Presence of coronary angioplasty implant and graft; Z90.89 Acquired absence of other organs; Z82.49 Family history of ischemic heart disease and other diseases of the circulatory system; I25.2 Old myocardial infarction; Z87.891 Personal history of nicotine dependence; Z72.89 Other problems related to lifestyle; Z68.38 Body mass index [BMI] 38.0-38.9, adult; Z79.01 Long term (current) use of anticoagulants
CPT/HCPCS: 36415; 72170; 80048; 85014; 85018; 85049; A9270-GY; J0330; J0360; J0690; J1100; J1170; J1885; J2250; J2405; J2704; J2710; J2765; J2795; J3010

== ENCOUNTER 2022-07-07 08:45 | Inpatient (IN) ==
[~2022-07-07 08:45] MED LIST changes: +Buffered Lidocaine 1% SYRIN 1 ml INTRADERM ONE; -Buffered Lidocaine 1% SYRIN* 1 ML/SYRINGE INTRADERM ONE; -Lactated Ringers 1000 ML Bag* 1,000 ML IV SCH; +Lactated Ringers 1000 ml BAG 1,000 ML IV SCH; -Tranexamic Acid 1,000 MG in NS 0.9% 50 ML* (outpatient use) IV SCH
[2022-07-07] MEDS ORDERED: Magnesium Hydroxide LIQ 30 ML UDC PO PRN (12:17)
[2022-07-07] MEDS ORDERED: Ondansetron ODT 4 mg TAB 4 MG TAB PO PRN (12:17)
[2022-07-07] MEDS ORDERED: Lactulose 30 ml UDC PO PRN (12:17)
[2022-07-07] MEDS ORDERED: Morphine 2 MG/ML SYRINGE IV PRN (12:17)
[2022-07-07] MEDS ORDERED: Ondansetron 4 mg VIAL 2 MG/ML 2 ml VIAL IV PRN ×2 (12:17→14:43)
[2022-07-07] MEDS ORDERED: ceFAZolin 2 GM in NS PREMIX 2 GM/100 ML BAG IVPB ONE (12:26)
[2022-07-07] MEDS ORDERED: Lactated Ringers 1000 ml BAG 1,000 ML IV SCH (13:00)
[2022-07-07] MEDS ORDERED: ceFAZolin 1 GM ADVAN 1 GM in NS 0.9% 50 ML 50 ML IVPB SCH (13:00)
[2022-07-07] MEDS ORDERED: Propofol 10 mg/ml 100 ML BTL 1,000 MG/100 ML BTL ONE (14:19)
[2022-07-07] MEDS ORDERED: fentaNYL 100 mcg/2 ml 50 MCG/ML VIAL ONE (14:25)
[2022-07-07] MEDS ORDERED: Midazolam 5 mg/5 ml VIAL 1 mg/ml 5 ml VIAL (5 mg) ONE (14:25)
[2022-07-07] MEDS ORDERED: Dexamethasone IV 4 MG/ML VIAL 1 ml VIAL ONE (14:27)
[2022-07-07] MEDS ORDERED: Ondansetron 4 mg VIAL 2 MG/ML 2 ml VIAL ONE ×2 (14:27→17:49)
[2022-07-07] MEDS ORDERED: Bupivacaine 0.5% SDV PF 30ML VIAL ONE (14:40)
[2022-07-07] MEDS ORDERED: Naloxone 0.4 mg VIAL 0.4 mg/ml 1 ml VIAL IV PRN (14:43)
[2022-07-07] MEDS ORDERED: fentaNYL 100 mcg/2 ml 50 MCG/ML VIAL IV PRN (14:43)
[2022-07-07] MEDS ORDERED: Acetaminophen IV 1 GM/100ML 1,000 MG/100 ML BAG IV ONE (15:15)
[2022-07-07] MEDS ORDERED: Propofol 10 MG/ML 20 ML BTL ONE (17:40)
[2022-07-07] MEDS ORDERED: Phenylephrine 1% NASAL 15 ML BOT ONE (17:40)
[2022-07-07] MEDS: Magnesium Hydroxide LIQ 30 ML UDC PO SCH (21:00)
[2022-07-08] MEDS: ceFAZolin 1 GM ADVAN 1 GM in NS 0.9% 50 ML 50 ML IVPB SCH ×2 (00:01→08:07)
[2022-07-08 06:29] LABS: Hematocrit 40 % (42-52); Hemoglobin 13.5 g/dL (14.0-18.0); Mean Platelet Volume 7.2 fL (7.4-10.4); Platelet Count 204 10^3/uL (150-450)
[2022-07-08 06:59] LABS: Calcium 8.3 mg/dL (8.6-10.3); Potassium 4.8 mmol/L (3.5-5.0)
[2022-07-08 07:05] LABS: Creatinine, Serum 0.87 mg/dL (0.67-1.17); eGFR CKD-EPI 98.8 (>60)
[2022-07-08] MEDS: Magnesium Hydroxide LIQ 30 ML UDC PO SCH (08:44)
[2022-07-08] MEDS ORDERED: Vitamin THERAPEUTIC TAB PO SCH (09:00)
[2022-07-08 11:22] VITALS: BP 115/76
== END 2022-07-08 12:15 | disposition home or self-care (01) | DRG 301 ==
LOC: AA 11:55 → INTOOBSV 11:55 → SSU 12:17
PROVIDERS: ADMIT Orthopaedic Surgery Adult Reconstructive Orthopaedic Surgery; ATTEND Orthopaedic Surgery Adult Reconstructive Orthopaedic Surgery